=== PATIENT | female | born 1935 | race Caucasian/White ===

== ENCOUNTER 2016-11-03 17:49 | Inpatient (IN) | payer MEDICARE, MEDICAID ==
[~2016-11-03] VITALS: Ht 152.4 cm; Wt 74.7 kg
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
--- NOTE | ~2016-11-03 | PR ---
[place], [place] PROGRESS NOTE NAME: [facility]AYLER [facility]UNNINGHAM [id number] UNIT #: [id number] ROOM: 310 DOCTOR: ROSANA GROVE MD BIRTHDATE: [birth year] DOS: 11/07/2016 CHIEF COMPLAINT: "I think I need one more day, but I am feeling better." SUMMARY OF THE VISIT: The patient was interviewed in the dining area. She was wide awake, eating her breakfast. She stopped and engaged readily in conversation. For the first time since she has been here, she had a fairly goal directed normal conversation that included spontaneously thoughts and was fairly factual in its basis. The patient does report that she has been here about 3-4 days and feels that she came here because she is still grieving the loss of her son approximately 2 years ago. She recounted many of the things that led to her coming into the hospital and does state now that she is sleeping better, eating better, and feels that overall her mental status is clearing, but she is still fearful about returning home with her daughter that she has not yet 100% herself. This actually is some insight into her disease process that she had not shown previously. There was absolutely no talk of delusions, paranoia, or psychosis in anyway and she convincingly denied any medication side effects. MENTAL STATUS: She is alert and oriented with some time gaps, but overall she is fairly well intact. Mood does seem to be strongly trending towards euthymia. Affect is much more appropriate. She is spontaneously and is able to elaborate her thoughts and feelings quite well. There are no symptoms suggestive of hypomania or jack. There are no auditory or visual hallucinations noted. No paranoia is voiced. No delusions are voiced. Short, intermediate, and long-term memory for the most part are fully intact. PLAN: At this point in time, I will maintain her current psychotropic regimen that includes the antidepressant Remeron at 15 mg at bedtime, Risperdal 0.5 mg in the morning and 1 mg at night and Exelon patch 9.5 mg daily. We will engage in individual and billy milieu activity, finalize aftercare programming and discharge then when stable. ROSANA GROVE MD CM:PNTRANS 6 ROSANA GROVE MD 11/07/1637 interface
--- NOTE | ~2016-11-03 | CON ---
[place], [place] REPORT OF CONSULTATION NAME: TAYLER CUNNINGHAM UNIT #: [id number] ROOM: 310 DOCTOR: GIDEON FOY ED.D (CATHERINE) BIRTHDATE: [birth year] DOS: 11/06/2016 The patient is an 81-year-old female referred by Dr. Grove for competency evaluation. At the present time, this patient is on the [facility] at [facility]. She states she is a and has five children. 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 Her family physician is Dr. Gifford and Dr. Ramirez. Her medical history is pertinent for delirium and history of CVA, coronary artery disease. Her medications include Risperdal, Exelon patches and Remeron. She denies substance abuse issues. This patient was awake, alert and oriented in all three spheres. She was very lucid during my conversation. She appears to have been suffering from delirium, not otherwise specified. She apparently had a urinary tract infection and once that began to clear, her mental status improved significantly. Her daughter asked me about a power of staff attorney for healthcare, and in my opinion, this patient could certainly give a power of staff attorney to her daughter because I do believe she is competent at this time. DIAGNOSIS: Delirium, not otherwise specified. RECOMMENDATIONS: In my opinion, this patient is competent and her daughter can obtain a power of staff attorney from this patient if the patient so desires. Thank you very much for this consult. GIDEON FOY ED.D CM:CONSTR:REPORT OF CONSULTATION 1352 11/07/16 0205 interface ROSANA GROVE MD
--- NOTE | ~2016-11-03 | PR ---
[place], [place] PROGRESS NOTE NAME: TAYLER CUNNINGHAM UNIT #: [id number] ROOM: 310 DOCTOR: ROSANA GROVE MD BIRTHDATE: [birth year] DOS: 11/05/2016 CHIEF COMPLAINT: The patient was sleeping in a Rosenda chair in the quiet room. SUMMARY OF THE VISIT: The patient was attempted to be interviewed, but she was very somnolent. Nurses report that she had a fairly decent day until about 3-4 in the afternoon when she began to rapidly escalate and continued such escalation throughout the late afternoon, early evening and into wee hours of the morning. At that point in time, she became very delusional and psychotic. She reported that Jessica Smith was coming, the [place] were here. She was very labile and grossly psychotic. She was extremely confused as well. During this period of time, she required p.r.n. intervention, which at first did not work and finally did catch up with her and did calm her down. She right now is experiencing some of the somnolence from the p.r.n. still. MENTAL STATUS: My examination this morning is limited because of her somnolence. However, the nurses do report continued gross psychotic behavior. PLAN: I will discontinue the Seroquel in lieu of Risperdal 0.5 mg in the morning and 1 mg at bedtime to utilize an agent that is a little bit more potent and will break through the psychosis. Given the fact that the confusion worsened in the late afternoon and early evening, I will go ahead and start Exelon patch 4.6 mg daily. We will attempt to engage her in individual and billy milieu activity, explore possible placement options returning to the least restrictive one when stable. ROSANA GROVE MD CM:PNTRANS 48 ROSANA GROVE MD 11/05/162048 interface
--- NOTE | ~2016-11-03 | PR ---
[place], [place] PROGRESS NOTE NAME: TAYLER CUNNINGHAM UNIT #: [id number] ROOM: 310 DOCTOR: ROSANA GROVE MD BIRTHDATE: [birth year] DOS: 11/06/2016 CHIEF COMPLAINT: "Good morning." SUMMARY OF THE VISIT: The patient was interviewed as she rested quietly in the quiet room. She did awake enough to engage in brief conversation, very superficial and not spontaneously whatsoever. She was pleasant upon approach, however, and voiced no bizarre statements. This is in vicente contrast to the weekend when her comments oftentimes were quite bizarre and very delusional. Nurses report that she has been resting excessively, perhaps catching up from her three to four days if not sleeping whatsoever. She does seem to be tolerating the current medication regimen well and I see no tardive dyskinesia, extrapyramidal symptoms, sedation or somnolence. MENTAL STATUS: She is alert and oriented to person, place, not necessarily to time. Mood does seem to be fairly euthymic. Affect appropriate. There were no voiced delusions or paranoia this morning and there is no overt jack or hypomania. Memory has gaps. PLAN: I will go ahead and maintain the current dose of the Risperdal. I will increase Exelon patch from 4.6 to 9.5 mg daily, trying to maximize potential benefits in improving and maintaining ADLs, behavior and cognition. Continue to engage in individual and billy milieu activity, returning to the least restrictive environment when stable. ROSANA GROVE MD CM:PNTRANS 0807 [id number] ROSANA GROVE MD 11/06/16 0859 interface
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
--- NOTE | ~2016-11-03 | PN ---
[place], [place] PROGRESS NOTE NAME: TAYLER CUNNINGHAM UNIT #: [id number] ROOM: 310 DOCTOR: GIDEON FOY ED.D) BIRTHDATE: [birth year] DATE: 11/08/16 UPDATE I met with this patient and her daughter today regarding counseling following discharge. She is going to follow up with Dr. Marquis or Dr. Nieto at the [facility]. I suggested that the patient and her daughter both go to counseling together, but they decided they would rather go to separate therapists. The patient does struggle with interactions with her daughter and also with the loss of her son. Thank you very much for this consult. GIDEON FOY ED.D) CM:PNTRANS [id number] [id number] GIDEON FOY ED.D (BOB) 11/09/16 1728 ABBI [email or web address].LLR
--- NOTE | ~2016-11-03 | CON ---
[place], [place] REPORT OF CONSULTATION NAME: TAYLER CUNNINGHAM UNIT #: [id number] ROOM: 310 DOCTOR: QUITA HERRERA MD BIRTHDATE: [birth year] DOS: 11/05/2016 BEHAVIORAL HEALTH UNIT ATTENDING: Dr. Kaiser Salas. HISTORY OF PRESENT ILLNESS: The patient is an 81-year-old female with a past medical history of, 1. Diastolic type congestive heart failure. 2. Benign essential hypertension. 3. Centrilobular emphysema, COPD. 4. Coronary artery disease of the [place] vessels and history of UT and stent placement in the past. 5. History of GERD and esophagitis. 6. History of generalized anxiety disorder. The patient is presently admitted under care of Dr. Salas for major recurrent depression with psychotic features. The patient is unable to sleep for a few days and finally is resting now that she was given Geodon and some Ativan. The patient is resting comfortably and does wake up easily. She is asymptomatic. No chest pain, no shortness of breath, no GI or urinary symptoms. SYSTEMS REVIEW: LUNGS: No increasing shortness breath. No cough or wheezing. No sputum. GASTROINTESTINAL: No nausea, vomiting, diarrhea, or constipation. CARDIOVASCULAR SYSTEM: No chest pains or palpitations. FAMILY HISTORY: Noncontributory. PRESENT MEDICATIONS: Risperidone, rivastigmine, Fosamax, potassium, metoprolol, lisinopril, furosemide, Plavix, aspirin, Norvasc, omeprazole, simvastatin, Geodon, mirtazapine, lorazepam p.r.n. ALLERGIES: Known allergies to ALBUTEROL. FAMILY HISTORY: Noncontributory. PHYSICAL EXAMINATION: GENERAL: Alert, mostly oriented, in no acute distress. HEENT AND NECK: Extraocular movements are intact. Sclerae are anicteric. Oral mucosa is moist and clean. No obvious facial weakness. Neck is supple without any lymphadenopathy. No thyromegaly. No JVD. No carotid arterial bruits. LUNGS: Clear to auscultation. No wheezing. No rhonchi. CARDIOVASCULAR SYSTEM: Heart rate is regular in rate and rhythm. S1 and S2 normally audible. No significant murmur or any other abnormal cardiac sounds. ABDOMEN: Soft, nontender. No obvious organomegaly. Bowel sounds are present. No obvious herniation. EXTREMITIES: Without significant cyanosis or edema. Warm to touch. CENTRAL NERVOUS SYSTEM: Cranial nerves I-XII are intact. [place], [place] REPORT OF CONSULTATION NAME: TAYLER CUNNINGHAM UNIT #: [id number] ROOM: 310 DOCTOR: QUITA HERRERA MD BIRTHDATE: [birth year] LABORATORY DATA: Urine cultures were negative. Chest x-ray showed no acute abnormality. Ammonia level was normal. Lipid panel was normal. Thyroid functions were normal. IMPRESSION: 1. The patient with major depression with psychotic features. She was having hallucinations and is being followed closely by Dr. Kaiser Salas, the psychiatrist. The patient was not sleeping for a few days according to nursing staff, but finally she is sleeping after she was given Geodon and Ativan. The patient is asymptomatic and appears to be getting better. 2. Coronary artery disease of the [place] vessels without chest pains or any angina symptoms. 3. Chronic diastolic type congestive heart failure, compensated. No complaints of shortness of breath. No hypoxemia. No wheezing. 4. Centrilobular emphysema with subchronic dyspnea on exertion, presently asymptomatic. 5. Continue all home meds. Dr. Salas, thank you for asking me to see the patient, I will follow along with you. QUITA HERRERA MD CM:CONSTR:REPORT OF CONSULTATION 1513 11/06/16 0457 interface
[~2016-11-03 17:49] MED LIST: ALENDRONATE SOD70 M1 PO; ALEVE220 MG PO; AMLODIPINE BESYL5 MG PO; AMLODIPINE5 MG PO; ASPIRIN81 M1 PO; ATARAX,VISTARIL50 MG PO; CEFUROXIME AXE250 MG PO; CELEXA10 MG PO; CITALOPRAM10 MG PO; Clopidogrel75 MG PO; FOSAMAX70 MG PO; HYDR25T PO; HYDROCHLOROTHIA25 MG PO; K-TAB10 MEQ PO; LASIX20 MG PO; LEVOFLOXACIN500 MG PO; LISINOPRIL20 MG PO; LISINOPRIL5 MG PO; METOPROLOL TAR100 M1 PO; METOPROLOL100 MG PO; NEXIUM40 MG PO; NIRAVAM0.5 MG PO; NORCO 5-325 TA1 EACH PO; NORVASC5 MG PO; OMEPRAZOLE40 MG PO; PLAVIX75 MG PO; SIMVASTATIN20 MG PO; VANCOCIN250 M1 PO; VITAMIN D1000 IU PO; VITAMIN D31000 IU PO; VITAMIN D50000 I1 PO; XANAX0.5 MG PO; ZESTRIL20 MG PO; ZOCOR20 MG PO; ZOFRAN ODT4 MG SL
[2016-11-03 17:59] VITALS: BP 130/65
[2016-11-03 18:35] LABS: BASO % 0.5 % (0.0-1.0); EOS # 0.2 10*3/uL (0.0-0.4); EOS % 2.4 % (1.0-4.0); HEMATOCRIT 42.3 % (37.0-47.0); HEMOGLOBIN 14.1 g/dl (12.0-16.0); IG # 0.1 10*3/uL (0.0-0.1); LYMPH # 1.6 10*3/uL (1.3-4.4); LYMPH % 19.2 % (27.0-41.0); MEAN CELL VOLUME 90.4 fl (81.0-99.0); MEAN CORPUSCULAR HGB 30.1 pg (27.0-31.0); MEAN CORPUSCULAR HGB CONC 33.3 g/dl (33.0-37.0); MEAN PLATELET VOLUME 9.7 fl (9.6-12.3); MONO % 12.5 % (3.0-9.0); NEUT # 5.3 10*3/uL (2.3-7.9); NEUT % 64.7 % (47.0-73.0); PLATELET COUNT AUTOMATED 229 10*3/uL (130-400); RED BLOOD COUNT 4.68 10*6/uL (4.10-5.10); WHITE BLOOD COUNT 8.2 10*3/uL (4.8-10.8)
[2016-11-03 18:45] LABS: PROTHROMBIN TIME 10.7 SECONDS (9.0-12.4)
[2016-11-03 18:55] LABS: ALBUMIN 3.7 gm/dl (3.1-4.5); ALKALINE PHOSPHATASE 90 U/L (45-117); BILIRUBIN, TOTAL 0.4 mg/dl (0.2-1.0); BUN 22 mg/dl (7-24); CARBON DIOXIDE 29 mmol/L (21-32); CHLORIDE 100 mmol/L (98-107); CKMB 1.1 ng/ml (0.5-3.6); CPK 59 U/L (26-192); EST GLOM FILT AFRICAN AMERICAN 50 ml/min; GLUCOSE 121 mg/dL (65-99); LDH 145 U/L (84-246); MAGNESIUM 2.3 mg/dL (1.5-2.1); POTASSIUM 3.5 mmol/L (3.5-5.1); SGOT/AST 18 IU/L (3-35); SGPT/ALT 10 U/L (12-78); SODIUM 142 mmol/L (136-145); TOTAL PROTEIN 7.1 gm/dL (6.4-8.2)
[2016-11-03 19:04] LABS: TROPONIN I < 0.015 ng/ml (<0.045)
[2016-11-03 19:39] LABS: BILIRUBIN NEGATIVE (NEGATIVE); BLOOD NEGATIVE (NEGATIVE); CLARITY SL CLOUDY (CLEAR); COLOR YELLOW (YELLOW); GLUCOSE NEGATIVE (NEGATIVE); KETONE NEGATIVE (NEGATIVE); LEUKO ESTERASE TRACE (NEGATIVE); NITRITE NEGATIVE (NEGATIVE); PH 5.5 (5.0-9.0); PROTEIN NEGATIVE (NEGATIVE); SPECIFIC GRAVITY 1.015 (1.005-1.030); UROBILINOGEN 0.2 E.U./dl (0.2-1.0)
[2016-11-03 19:48] LABS: URINE AMPHETAMINES < 1000 (1000ng/ml); URINE BARBITURATES < 200 (200ng/ml); URINE COCAINE < 300 (300ng/ml)
[2016-11-03 19:49] LABS: BACTERIA 4+; HYALINE CAST TNTC
[2016-11-03 19:50] LABS: MUCOUS TRACE; URINE REFLEX COMMENT YES (NO)
[2016-11-03 22:00] VITALS: BP 123/73
[2016-11-03 22:29] VITALS: BP 123/73
[2016-11-04 06:50] LABS: THYROID STIM HORMONE (HS) 3.06 uIU/ml (0.358-4.75)
[2016-11-04 07:58] LABS: FOLIC ACID 17.3 ng/mL (>5.38); VITAMIN D, 25-HYDROXY 28.3 ng/mL (30-100)
[2016-11-04 08:20] VITALS: BP 115/67
[2016-11-04 19:24] VITALS: BP 137/77
[2016-11-05 07:41] VITALS: BP 114/60
[2016-11-05 20:00] VITALS: BP 110/60
[2016-11-06 07:22] VITALS: BP 117/53
[2016-11-06 20:00] VITALS: BP 108/52
[2016-11-06 22:15] VITALS: BP 118/64
[2016-11-07 07:55] VITALS: BP 124/82
[2016-11-07 20:41] VITALS: BP 112/46
[2016-11-08 07:51] VITALS: BP 117/47
[2016-11-08] MEDS ORDERED: RISPERIDONE1 MG PO (08:14)
[2016-11-08] MEDS ORDERED: RISPERIDONE0.5 MG PO (08:14)
[2016-11-08] MEDS ORDERED: RIVASTIGMINE1 EAC1 T (08:14)
[2016-11-08] MEDS ORDERED: MIRTAZAPINE15 M2 PO (08:14)
== END 2016-11-08 10:50 | disposition home health service (06) | DRG 885 ==
LOC: ED 17:49 → 3N 20:54
PROVIDERS: Nurse Practitioner Adult Health; Physician Assistant
DX: F33.3 Major depressive disorder, recurrent, severe with psychotic symptoms (principal); N39.0 Urinary tract infection, site not specified; I11.0 Hypertensive heart disease with heart failure; I50.32 Chronic diastolic (congestive) heart failure; I25.10 Atherosclerotic heart disease of native coronary artery without angina pectoris; R41.0 Disorientation, unspecified; J43.2 Centrilobular emphysema; K21.9 Gastro-esophageal reflux disease without esophagitis; F41.1 Generalized anxiety disorder; Z86.73 Personal history of transient ischemic attack (TIA), and cerebral infarction without residual deficits; Z95.5 Presence of coronary angioplasty implant and graft; I25.2 Old myocardial infarction

== ENCOUNTER → 2017-06-22 | Outpatient (CLI) | payer MEDICARE ==
[~2017-06-22] MED LIST changes: +MIRTAZAPINE15 M2 PO; +RISPERIDONE0.5 MG PO; +RISPERIDONE1 MG PO; +RIVASTIGMINE1 EAC1 T
== END | disposition home or self-care (01) ==
LOC: US 13:30
DX: M71.21 Synovial cyst of popliteal space [Baker], right knee (principal)

== ENCOUNTER 2018-01-08 14:11 | Inpatient (IN) | payer MEDICARE ==
[~2018-01-08] VITALS: Ht 157.5 cm; Wt 76.2 kg
--- NOTE | ~2018-01-08 | WRIGHTHP ---
[place], [place] PATIENT HISTORY AND PHYSICAL EXAM NAME: [id number] UNIT #: [id number] ROOM: 511 DOCTOR: ISH OLSON MD BIRTHDATE: [birth year] DOS: 01/08/2018 HISTORY OF PRESENT ILLNESS: The patient is very well known to us. She was brought into the emergency room by family members saying that she has been increasingly weak and tired and the family is unable to take care of her. The patient denies having any chest pains, palpitations or shortness of breath. Does not have any fever or chills, does not have any abdominal pain, nausea, emesis. Other than being constipated, she did not have any complaints. PAST MEDICAL HISTORY: Significant for, 1. Adult failure to thrive. 2. Severe hard of hearing. 3. Diastolic congestive heart failure. 4. Benign hypertension. 5. Coronary artery disease. 6. Generalized anxiety disorder. 7. Central lobar emphysema. 8. Last hospitalization in October [address] [facility] for encephalopathy. MEDICATIONS: Xanax 0.5 mg daily p.r.n., alendronate 70 once weekly, amlodipine 5 daily, aspirin 81 daily, vitamin D 1000 units daily, citalopram 10 daily, Plavix 75 daily, Lasix 40 daily, levothyroxine 50 mcg daily, lisinopril 20 daily, metoprolol 100 mg twice a day, Remeron 15 at bedtime, omeprazole 40 mg daily, potassium 10 daily, Risperdal 0.5 daily and then 1 mg at bedtime, Requip 1 mg daily, simvastatin 40 daily. SOCIAL HISTORY: Nonsmoker, does not use any alcohol. PHYSICAL EXAMINATION: GENERAL: She is awake and alert and oriented, hard of hearing. VITAL SIGNS: Graphic trend shows a pressure of 132/70, pulse of 86, respirations 14, afebrile. LUNGS: Clear. HEART: Regular. ABDOMEN: Obese. EXTREMITIES: Without any edema. NEUROLOGIC: No neuro deficits. ASSESSMENT AND PLAN: 1. The patient with adult failure to thrive, is here for placement purposes. Social service and PT, OT have been consulted. 2. Coronary artery disease of [place] coronaries stable without any new complaints. 3. Benign hypertension, controlled. [place], [place] PATIENT HISTORY AND PHYSICAL EXAM NAME: TAYLER CUNNINGHAM UNIT #: [id number] ROOM: 511 DOCTOR: ISH OLSON MD BIRTHDATE: [birth year] ISH OLSON MD CM:HISPHYS:PATIENT HISTORY AND PHYSICAL EXAMINATION 0841 1005 ISH OLSON MD 01/09/18 1004 interface
--- NOTE | ~2018-01-08 | DS ---
[place], [place] DISCHARGE SUMMARY NAME: TAYLER CUNNINGHAM UNIT #: [id number] ROOM: 511 DOCTOR: ISH OLSON MD BIRTHDATE: [birth year] DOS: 01/11/2018 The patient was admitted on 01/08/2018 and discharged on 01/11/2018. DIAGNOSES: 1. Adult failure to thrive. 2. Benign hypertension. 3. Coronary artery disease with history of stent placement. 4. Age-related cognitive decline. 5. Severe hard of hearing. 6. Diastolic congestive heart failure. HOSPITAL COURSE: The patient is 82 years old, very well known to us. The patient too weak and the family members unable to take care of her. They brought her to the Emergency Room and they requested placement. After admission, the patient was continued on home medications and social service and PT/OT consultation was obtained. Placement is being arranged to [facility]. Once precertification is obtained from the insurance, the patient should be able to go there today. DIET: Will be regular. DISCHARGE MEDICATIONS: Alendronate 70 once weekly on Sunday, amlodipine 5 daily, aspirin daily, Plavix 75 daily, lisinopril 20 daily, metoprolol 100 b.i.d., omeprazole 40 daily, simvastatin 20 daily, potassium 10 daily, Lasix 40 daily, Remeron 15 at bedtime, Risperdal 0.5 daily b.i.d., Xanax 0.5 daily p.r.n. for anxiety, citalopram 10 daily, levothyroxine 50 mcg daily, vitamin D 1000 units daily, Requip 1 mg at bedtime. The patient is 82 years old, will [facility]. [place], [place] DISCHARGE SUMMARY NAME: TAYLER CUNNINGHAM UNIT #: [id number] ROOM: 511 DOCTOR: ISH OLSON MD BIRTHDATE: [birth year] ISH OLSON MD CM:DISCHARG 0833 1612 ISH OLSON MD 01/25/18 0909 interface
--- NOTE | ~2018-01-08 | PR ---
[place], [place] PROGRESS NOTE NAME: TAYLER CUNNINGHAM UNIT #: [id number] ROOM: 511 DOCTOR: ISH OLSON MD BIRTHDATE: [birth year] DOS: 01/11/2018 SUBJECTIVE: The patient is doing fine without any complaints. She did walk with physical therapy this morning. OBJECTIVE: VITAL SIGNS: Graphic trend shows a pressure 126/55, pulse of 67, respirations 20, temperature 98. LUNGS: Clear. HEART: Regular. ABDOMEN: Obese, soft. EXTREMITIES: Without any edema. LABORATORY DATA: Blood culture shows no bacterial growth. ASSESSMENT AND PLAN: 1. Adult failure to thrive. The patient is on Physical Therapy, Occupations Therapy here. The family is unable to take care of her. intermediate facility placement will be obtained today. 2. Benign hypertension, controlled. ISH OLSON MD CM:PNTRANS 0830 2156 ISH OLSON MD 01/11/18 2154 interface
--- NOTE | ~2018-01-08 | PR ---
[place], [place] PROGRESS NOTE NAME: TAYLER CUNNINGHAM UNIT #: [id number] ROOM: 511 DOCTOR: ISH OLSON MD BIRTHDATE: [birth year] DOS: SUBJECTIVE: The patient is resting comfortably, does not appear to be in any distress. OBJECTIVE: VITAL SIGNS: Blood pressure is 121/66, pulse of 66, respirations 20, temperature 97.4. LUNGS: Clear. HEART: Regular. ABDOMEN: Obese. EXTREMITIES: No edema. LABORATORY DATA: No labs available. ASSESSMENT AND PLAN: 1. Adult failure to thrive for placement. The patient is complaining of 3-day stay for [facility] placement. 2. Benign hypertension, controlled. 3. Coronary artery disease of [place] coronaries stable without any complaints. ISH OLSON MD CM:CESILIA 54 ISH OLSON MD 01/10/181953 interface
[2018-01-08 14:12] VITALS: BP 114/56
[2018-01-08] MEDS ORDERED: ALPRAZOLAM0.5 M3 PO (14:19)
[2018-01-08] MEDS ORDERED: CITALOPRAM10 MG PO (14:20)
[2018-01-08] MEDS ORDERED: LEVOTHYROXINE50 MCG PO (14:21)
[2018-01-08] MEDS ORDERED: VITAMIN D400 UNI1 PO (14:23)
[2018-01-08 14:53] VITALS: BP 122/66
[2018-01-08 14:59] LABS: BILIRUBIN NEGATIVE (NEGATIVE); BLOOD NEGATIVE (NEGATIVE); CLARITY CLEAR (CLEAR); COLOR YELLOW (YELLOW); GLUCOSE NEGATIVE (NEGATIVE); KETONE NEGATIVE (NEGATIVE); LEUKO ESTERASE NEGATIVE (NEGATIVE); NITRITE NEGATIVE (NEGATIVE); UROBILINOGEN 0.2 E.U./dl (0.2-1.0)
[2018-01-08 15:04] LABS: BASO # 0.1 10*3/uL (0.0-0.1); BASO % 0.5 % (0.0-1.0); EOS # 0.3 10*3/uL (0.0-0.4); EOS % 3.2 % (1.0-4.0); HEMATOCRIT 41.9 % (37.0-47.0); HEMOGLOBIN 13.1 g/dl (12.0-16.0); LYMPH # 1.7 10*3/uL (1.3-4.4); LYMPH % 18.6 % (27.0-41.0); MEAN CELL VOLUME 93.7 fl (81.0-99.0); MEAN CORPUSCULAR HGB 29.3 pg (27.0-31.0); MEAN CORPUSCULAR HGB CONC 31.3 g/dl (33.0-37.0); MEAN PLATELET VOLUME 10.4 fl (9.6-12.3); MONO # 0.8 10*3/uL (0.1-1.0); MONO % 8.8 % (3.0-9.0); NEUT # 6.3 10*3/uL (2.3-7.9); NEUT % 68.2 % (47.0-73.0); PLATELET COUNT AUTOMATED 202 10*3/uL (130-400); RED BLOOD COUNT 4.47 10*6/uL (4.10-5.10); RED CELL DISTRI WIDTH 13.5 % (0-14.5); WHITE BLOOD COUNT 9.2 10*3/uL (4.8-10.8)
[2018-01-08 15:19] LABS: ALBUMIN 3.4 gm/dl (3.1-4.5); ALKALINE PHOSPHATASE 103 U/L (45-117); BUN 24 mg/dl (7-24); CHLORIDE 105 mmol/L (98-107); LIPASE 160 U/L (73-393); POTASSIUM 4.1 mmol/L (3.5-5.1); SGOT/AST 14 IU/L (3-35); SGPT/ALT 11 U/L (12-78); SODIUM 143 mmol/L (136-145); TOTAL PROTEIN 6.9 gm/dL (6.4-8.2)
[2018-01-08 15:22] LABS: TROPONIN I < 0.015 ng/ml (<0.045)
[2018-01-08 15:25] LABS: ACT PARTIAL THROMBO TIME 22.5 SECONDS (20.8-31.5)
[2018-01-08 15:43] VITALS: BP 115/61
[2018-01-08 15:45] LABS: BACTERIA TRACE; HYALINE CAST 0-3
[2018-01-08 16:14] VITALS: BP 109/68
[2018-01-08 17:00] VITALS: BP 137/73
[2018-01-08] MEDS ORDERED: ROPINIROLE HYDRO1 MG PO (17:14)
[2018-01-08 20:00] VITALS: BP 123/58
[2018-01-09] VITALS: BP 118/68
[2018-01-09 08:00] VITALS: BP 127/63
[2018-01-09 12:00] VITALS: BP 112/53
[2018-01-09 16:00] VITALS: BP 129/65
[2018-01-09 20:00] VITALS: BP 125/56
[2018-01-10] VITALS: BP 121/66
[2018-01-10 08:00] VITALS: BP 146/70
[2018-01-10 12:00] VITALS: BP 107/52
[2018-01-10 16:00] VITALS: BP 140/63
[2018-01-10 20:00] VITALS: BP 109/55
[2018-01-11] VITALS: BP 126/55
[2018-01-11 08:00] VITALS: BP 137/64; BP 137/69
[2018-01-11 12:00] VITALS: BP 120/57
== END 2018-01-11 14:44 | disposition other institution (70) | DRG 641 ==
LOC: ED 14:11 → EDHOLD 16:18 → 5E 16:18
PROVIDERS: Nurse Practitioner Family
DX: R62.7 Adult failure to thrive (principal); I11.0 Hypertensive heart disease with heart failure; I50.30 Unspecified diastolic (congestive) heart failure; I25.10 Atherosclerotic heart disease of native coronary artery without angina pectoris; H91.90 Unspecified hearing loss, unspecified ear; F41.1 Generalized anxiety disorder; E66.9 Obesity, unspecified; Z66 Do not resuscitate; M17.0 Bilateral primary osteoarthritis of knee; Z51.5 Encounter for palliative care; Z68.30 Body mass index [BMI] 30.0-30.9, adult; Z88.8 Allergy status to other drugs, medicaments and biological substances; Z79.899 Other long term (current) drug therapy; Z79.82 Long term (current) use of aspirin; Z98.61 Coronary angioplasty status; Z86.73 Personal history of transient ischemic attack (TIA), and cerebral infarction without residual deficits; Z87.01 Personal history of pneumonia (recurrent); Z83.3 Family history of diabetes mellitus; Z82.49 Family history of ischemic heart disease and other diseases of the circulatory system; Z82.3 Family history of stroke; Z83.6 Family history of other diseases of the respiratory system

== ENCOUNTER 2018-01-26 06:18 | Inpatient (IN) | payer MEDICARE ==
[~2018-01-26] VITALS: Ht 160 cm; Wt 80.7 kg
--- NOTE | ~2018-01-26 | PROC NOTE ---
[place], [place] PROCEDURE NOTE NAME: TAYLER CUNNINGHAM UNIT #: [id number] ROOM: 529 DOCTOR: GIORGI LOYOLA MD,ISMAEL BIRTHDATE: [birth year] DOS: 01/28/2018 PROCEDURE: Bronchoscopy. PREOPERATIVE DIAGNOSIS: The patient with area of atelectasis, infiltration, consolidation of right lower lobe. POSTOPERATIVE DIAGNOSIS: Acute pneumonia, suspected, ongoing in the right lower lobe. PROCEDURE DESCRIPTION: Informed consent obtained from the patient's daughter. The patient was brought to the OR and placed in supine position. Conscious sedation administered by the Anesthesia Department. After achieving proper sedation, airway introduced into the mouth. Bronchoscope advanced to the airway into laryngeal area. Epiglottis and vocal cords were seen. Bronchoscope advanced to the vocal cord and tracheal lumen. Tracheal lumen noted with small amount of secretions suctioned out. Vicki noted sharp. The left upper, lingular lower bronchi were all noted patent without secretions. Right upper, right middle lobe opening noted patent. The patient noted significant purulent secretion in the basilar subsegment of the right lower lobe, which was cleared off with normal saline wash. The adequate washing taken, sent for culture. Procedure well tolerated by the patient without any difficulty. Postoperative findings were discussed with the patient's daughter and Dr. Anum Gifford on the telephone as well. No change in treatment will be necessary. Culture will be monitored prior to making an adjustment with changes in antibiotics. Chest x-ray will be repeated later on as well for the patient possibly tomorrow or day after. Neutrophils of 98% consistent strongly for acute pneumonia. ISMAEL RAND MD CM:PROCNOTE:PROCEDURE NOTE [id number] ISMAEL LOYOLA MD
--- NOTE | ~2018-01-26 | PR ---
[place], [place] PROGRESS NOTE NAME: TAYLER CUNNINGHAM UNIT #: [id number] ROOM: 529 DOCTOR: ISH OLSON MD BIRTHDATE: [birth year] DOS: 01/30/2018 SUBJECTIVE: The patient is resting comfortably, did open eyes mechanic general operational test and did seem to understand what I said this morning. She does not have any complaints. OBJECTIVE: VITAL SIGNS: Blood pressure is 131/54, pulse of 69, respirations 20, temperature 97.8. LUNGS: Clear. HEART: Regular. ABDOMEN: Obese. EXTREMITIES: Without any edema. LABORATORY DATA: Routine culture shows normal loli. AFB smears are negative. ASSESSMENT AND PLAN: 1. The patient who presents with pneumonia, possible gram-negative, so far, the cultures are coming back negative. Clinically, the patient is improving. 2. Adult failure to thrive. The plan is to discharge her to [facility] today. Since cultures are negative, the vancomycin has been discontinued and the patient can be placed on p.o. medications upon discharge. ISH OLSON MD CM:PNTRANS [id number] ISH OLSON MD 01/30/18 0740 interface
--- NOTE | ~2018-01-26 | PR ---
[place], [place] PROGRESS NOTE NAME: TAYLER CUNNINGHAM UNIT #: [id number] ROOM: 529 DOCTOR: ISMAEL LORENZ MD BIRTHDATE: [birth year] DOS: 01/28/2018 SUBJECTIVE: The patient has been noted comfortable at this time, noted awake this morning on interactive noted with extreme severe hearing loss. The patient cannot speak. She has been noted comfortable at this time; otherwise, resting at the bed. She has been reported cough at times as per nursing staff. REVIEW OF SYSTEMS: Cannot be completed. The patient could not verbally communicate because of severe hearing loss. OBJECTIVE: VITAL SIGNS: Showed lowered grade fever of 99.2 degree Fahrenheit, respiratory rate 20, heart rate of 105-116 and blood pressure 147/74-136/52. HEENT: Examination shows head was atraumatic. Eyes nonicterus. NECK: Supple. CARDIOVASCULAR: S1, S2 audible. LUNGS: Noted decreased breaths in the lower portion of the lungs bilaterally. ABDOMEN: Soft. Moderate obesity. Bowel sounds present. EXTREMITIES: Noted without any acute edema. MUSCULOSKELETAL: Noted without any acute deformities. CENTRAL NERVOUS SYSTEM: Could not be examined clearly. However, there were no focal acute neurologic deficit noted. LABORATORY DATA: Noted blood gas yesterday pH of 7.36, pCO2 of 28, pO2 108 on nasal cannula. IMPRESSION: 1. Atelectasis of the right lower lobe. 2. Mucus impaction very likely with acute respiratory failure, possibility of acute pneumonia as well. Change in mental status, the patient seemed to be better today. The patient noted to be more awake. PLAN OF TREATMENT: Continue antibiotics, bronchodilators and oxygen supplementation. Proceed with the fibrobronchoscopy as planned. Other plan of therapy and care to be continued previously in progress without changes. No changes in the antibiotic will be necessary. Modification treatment, antibiotic could been done after review of the all cultures including current bronchoscopy, which was planned to be done today. Assessment and management were discussed with patient's daughter in detail personally. [place], [place] PROGRESS NOTE NAME: TAYLER CUNNINGHAM UNIT #: [id number] ROOM: 529 DOCTOR: ISMAEL LORENZ MD BIRTHDATE: [birth year] ISMAEL RAND MD CM:PNTRANS 113 ISMAEL LOYOLA MD 01/28/18 1131 interface
--- NOTE | ~2018-01-26 | CON ---
[place], [place] REPORT OF CONSULTATION NAME: TAYLER CUNNINGHAM UNIT #: [id number] ROOM: 529 DOCTOR: ISMAEL LORENZ MD BIRTHDATE: [birth year] DOS: 01/27/2018 PULMONARY CONSULTATION, EVALUATION, AND MANAGEMENT REASON FOR CONSULTATION: For assessment of change in mental status, current abnormal finding of the CT scan of the chest. HISTORY OF PRESENT ILLNESS: This is an 82-year-old white female, who has been staying at the [facility]. The patient was brought to the hospital as the patient developed acute change in mental status with increased lethargy and decreased responsiveness. She was seen by the primary care physician, Dr. Anum Gifford, last 01/21/2018 and was noted in her usual state of health, awake, and alert. She has been admitted to the hospital after assessment in the Emergency Room. She was still noted decreased responsiveness, does not respond to the vocal command, but noted with respond to the painful stimuli. CT scan of the head was also done. Chest x-ray was done. Later on, chest CT scan was also done, which showed evidence of mucus impaction with infiltration in the right lower lobe endobronchial tree. The patient has been currently noted without any distress; though, using oxygen supplementation by nasal cannula. She was not able to give me any history. All the history is contained and documented in review of the medical record, which was done by Dr. Anum Gifford note in my previous consultation of 2016. PAST MEDICAL HISTORY: Known with: 1. Chronic senile hearing loss. 2. The patient with history of essential hypertension. 3. Coronary artery disease. 4. Previous cerebrovascular accident. 5. Osteoporosis. 6. Hyperlipidemia. 7. Age-related cognitive decline. 8. History of postmenopausal osteoporosis. 9. History of congestive heart failure, diastolic dysfunction. 10. Restless leg syndrome. 11. History of hypothyroidism. 12. History of gastroesophageal reflux. 13. History of hypercholesterolemia. PAST SURGICAL HISTORY: Noted None significant. MEDICATIONS: Medications from the detention were noted use of Fosamax, Xanax, Norvasc, aspirin, vitamin D, citalopram, Plavix, levothyroxine, Lasix, lisinopril, metoprolol, Remeron, omeprazole, Risperdal, Requip, and Zocor. CURRENT MEDICATIONS: Administered noted use of Synthroid, DuoNeb, IV Zosyn, vancomycin, and other p.r.n. medications. DRUG ALLERGIES: THE PATIENT WAS NOTED ALLERGY TO ALBUTEROL. SOCIAL HISTORY: The patient is , has 6 children living at the [place], [place] REPORT OF CONSULTATION NAME: TAYLER CUNNINGHAM UNIT #: [id number] ROOM: 529 DOCTOR: ISMAEL LORENZ MD BIRTHDATE: [birth year] facility. The patient has been noted no past history of tobacco, alcohol, or illicit drug use. FAMILY HISTORY: Reported for essential hypertension. PHYSICAL EXAMINATION: GENERAL: This is an 82-year-old female, currently noted decreased response at the present time. Use of oxygen supplementation is 3 liters by nasal cannula. Height were recorded by the nursing staff as height of 5 feet 3 inches, weight of 178 pounds, and BMI of 31.5. VITAL SIGNS: T-max of 100 degrees Fahrenheit to normal temperature, respiratory rate of 18-20, heart rate of 104-127, and blood pressure of 131/61-108/53. Pulse oxygen saturation on 2 liters nasal cannula is 94% saturation. HEENT: On examination, apparently noted without any deformity. Head was atraumatic. Examination was limited. CARDIOVASCULAR: S1, S2 is audible. LUNGS: Essentially decreased breath sounds noted in the lungs without any wheeze or crackles at the present time. ABDOMEN: Noted soft, moderate obesity. Bowel sounds present. EXTREMITIES: Without any acute deformities, clubbing, cyanosis, or edema. MUSCULOSKELETAL SYMPTOMS: Without any acute deformities. VISIBLE SKIN: No lesions or rashes. CENTRAL NERVOUS SYSTEM: Decreased responsiveness, further assessment could not be performed. LABORATORY DATA: CBC that was done yesterday admission, WBC count is 12.6, hemoglobin is 11, and platelet count is 235,000. BMP of the patient that was done yesterday noted, glucose of 118, BUN of 24, and creatinine of 1.06. Urine drug screen yesterday was noted as negative. Ammonia level noted less than 10. CT chest that was done was noted with mucus plugging, area of atelectasis, and pneumonia involving the right lower lobe. Remaining lungs appeared to be clear of any acute abnormalities. Chest x-ray was suggestive of infiltration of the right lower lung. CT scan of the head that was done on 01/26/2018, no acute intracranial abnormalities. Arterial blood gas that I ordered noted pH of 7.36, pCO2 of 38, and pO2 of 108. This was done a 2 liters nasal cannula. IMPRESSION: 1. The patient has been currently admitted to the hospital with possibility of encephalopathy related to the current acute pneumonia with mucus impaction. 2. The patient with chronic senile hearing loss as well. 3. The patient with a history of hypothyroidism and other medical illness reported in the past history with chronic senile hearing loss as well with decreased communication. Possibility of aspiration cannot be completely excluded because of current unresponsiveness. PLAN OF MANAGEMENT: Continue the current antibiotics, which was ordered by Dr. Anum Gifford. The bronchoscopy was assessed and planned to be done on Sunday morning, 01/28/2018, and if the consent will be obtained ordered. Continue other comfort measures at this time. Usual care. Aspiration precautions. Avoid feeding orally until the patient noted fully awake and able to swallow the [place], [place] REPORT OF CONSULTATION NAME: TAYLER CUNNINGHAM UNIT #: [id number] ROOM: 529 DOCTOR: ISMAEL LORENZ MD BIRTHDATE: [birth year] food well. At this time, the patient's most of the medication has been given intravenously. Continue bronchodilators. Add Lovenox for DVT prophylaxis. Supportive care, other therapy, plan of management, and care plan. Assessment and management was discussed with Dr. Anum Gifford. Chest x-ray monitoring will be done in remission to assess the resolution of the current pneumonia/atelectasis and mucus impaction. Thanks for allowing me to participate in the care of this patient. ISMAEL RAND MD CM:CONSTR:REPORT OF CONSULTATION 1535 01/28/18 0202 interface
--- NOTE | ~2018-01-26 | PR ---
[place], [place] PROGRESS NOTE NAME: TAYLER CUNNINGHAM UNIT #: [id number] ROOM: 529 DOCTOR: ISMAEL LORENZ MD BIRTHDATE: [birth year] DOS: 01/29/2018 PULMONARY FOLLOWUP NOTE SUBJECTIVE: She has been noted fully awake and alert this morning. She has not been noted any acute new complaints of coughing. Chest congestion was noted decreased. She was noted extreme hard of hearing. The review of systems could not be performed. All the nursing staff had not reported any unusual symptoms in the last 24 hours. Bronchoscopy was done yesterday finding of acute pneumonia suspected in the right lower lobe consistent with the current finding noted on the CT scan of the chest with possible addition of atelectasis. OBJECTIVE: VITAL SIGNS: For the patient which were recorded showed the temperature noted 99.8 degree Fahrenheit to normal temperature, respiratory rate 16-24, heart rate 92-116, and the blood pressure 127/51-136/60. Pulse ox saturation on 2 liters 95% saturation. HEENT: Head was atraumatic, chronic severe, senile hearing loss, inability to verbally communicate. CARDIOVASCULAR: S1, S2 is audible. LUNGS: The patient was noted without any wheezing or crackles. ABDOMEN: Soft. Etvr-gg-vrueblne obesity, bowel sounds present. EXTREMITIES: Without acute edema. CENTRAL NERVOUS SYSTEM: No gross focal deficit. MUSCULOSKELETAL: No deformities. SKIN: Visible skin. No lesions or rashes. LABORATORY DATA: The specimen of right lower lobe noted with 98% neutrophils were noted. Gram stain of the bronchial washing, many white blood cells, few epithelial cells, no organisms seen. The BUN and creatinine today was noted as normal. Preliminary culture results of the bronchial washing noted as normal loli, final culture results were pending. IMPRESSION: 1. Acute severe pneumonia with addition of atelectasis right lower lobe suggested by the current via specimen of bronchial washing currently treated empirically with antibiotic as well as intravenous vancomycin. 2. Chronic hearing loss, which is noted seen in outpatient with inability to verbally communicate. 3. The patient with debility that remains persistent. PLAN OF MANAGEMENT: Adjust the dose of vancomycin at the trough level noted yesterday 1.6. The adjustment was done by the Pharmacy Services. Monitoring of the current respiratory status. Obtain a chest x-ray in the morning to reassess the progression of the pneumonia and additional area of atelectasis. Usual care, all other supportive therapy, plan of management and care plan. Other additional treatment changes will be suggested based on progression of the illness. Bronchodilator will be continued with oxygen supplementation in case of hypoxia. Pulse oxygen saturation is 92%. [place], [place] PROGRESS NOTE NAME: TAYLER CUNNINGHAM UNIT #: [id number] ROOM: 529 DOCTOR: ISMAEL LORENZ MD BIRTHDATE: [birth year] ISMAEL RAND MD CM:CESILIA [id number] ISMAEL LOYOLA MD 01/29/18 2330 interface
--- NOTE | ~2018-01-26 | PR ---
[place], [place] PROGRESS NOTE NAME: TAYLER CUNNINGHAM UNIT #: [id number] ROOM: 529 DOCTOR: ISMAEL LORENZ MD BIRTHDATE: [birth year] DOS: 01/30/2018 PULMONARY FOLLOWUP NOTE SUBJECTIVE: The patient was comfortable at this time, resting in the bed, noted abnormal because of severe hearing loss, but does not have signs of acute respiratory distress. She has been continued on intravenous antibiotics. Chest congestion, coughing seems to be decreased by nursing staff. OBJECTIVE: VITAL SIGNS: Normal temperature, respiratory rate 20, heart rate 70, blood pressure 145/71. Pulse ox saturation noted on 2.5 liters 94% saturation. HEENT: Examination shows head was atraumatic. Eyes: No icterus. NECK: Supple. CARDIOVASCULAR: S1, S2 audible. LUNGS: The patient was noted without any wheezing or crackles at the present time. ABDOMEN: Soft, nontender. EXTREMITIES: Without any acute edema. LABORATORY DATA: Chest x-ray that was done this morning was personally reviewed shows infiltration noted to increase in the right lower lobe with a small left pleural fluid was also noted. IMPRESSION: The patient currently noted rather culture of the bronchial washing was completed and noted as normal loli. IMPRESSION: 1 Possibility of lower lobe superimposed recurrent acute pneumonia likely cause of current worsening chest x-ray rather than acute pneumonia. 2. The patient with acute pneumonia as well, which has been treated with antibiotics. PLAN OF THERAPY: Diuretic therapy would be considered. Antibiotic to be completed. Other supportive therapy, plan of management. Follow up chest x-ray in about 3 days to be done. The patient was taking oral diuretics. [place], [place] PROGRESS NOTE NAME: TAYLER CUNNINGHAM UNIT #: [id number] ROOM: 529 DOCTOR: ISMAEL LORENZ MD BIRTHDATE: [birth year] ISMAEL RAND MD CM:PNTRANS [phone] ISMAEL LOYOLA MD 01/31/18 0140 interface
--- NOTE | ~2018-01-26 | WRIGHTHP ---
[place], [place] PATIENT HISTORY AND PHYSICAL EXAM NAME: TAYLER CUNNINGHAM [facility] #: [id number] UNIT #: [id number] ROOM: 529 DOCTOR: ISH OLSON MD BIRTHDATE: [birth year] DOS: 01/26/2018 HISTORY OF PRESENT ILLNESS: The patient is 82 years old. I had seen the patient on Sunday. She was pleasant, sitting up in a chair, has difficulty understanding the conversation because of her significant hard of hearing and lack of hearing aids, but she was not having any distress. She was discharged from [facility] . On Sunday morning, she presented to the Emergency Room with change in mental status. The patient was not responding any longer. There are no family members around. This morning, she does not have any complaints. She does open eyes slightly, but does not seem to recognize me and she does not seem to respond to any calls or questions. This could be because of her significant hard of hearing, but she does not appear to be focused either. PAST MEDICAL HISTORY: Significant for: 1. Recent hospitalization for adult failure to thrive. She was for placement to [facility]. She was discharged on 01/11/2018. She was in [place] until for therapy. 2. Benign hypertension. 3. History of cerebrovascular accident. 4. Coronary artery disease with history of stent placement. 5. Age-related cognitive decline. 6. Severe hard of hearing. 7. Diastolic CHF by history. 8. Postmenopausal osteoporosis. MEDICATIONS: She currently on were alendronate, Xanax, amlodipine, aspirin, vitamin D, citalopram, Plavix, Lasix, levothyroxine, lisinopril, metoprolol, Remeron, omeprazole, Risperdal, Requip and Zocor. SOCIAL HISTORY: Nonsmoker, does not use any alcohol. PHYSICAL EXAMINATION: GENERAL: The patient seems quite sleepy. Eyes will open energy conservation specialist or shaking her, but she does not respond to any commands or questions. VITAL SIGNS: Graphic trend shows a pressure of 131/61, pulse of 120, respirations 10, temperature 100.0. LUNGS: Diminished breath sounds. Scattered rhonchi heard bilaterally. HEART: Regular. ABDOMEN: Obese, soft. EXTREMITIES: Without any edema. ASSESSMENT AND PLAN: 1. The patient who presents with change in mental status, most likely has metabolic encephalopathy, possibly from hypoxemia from an underlying pneumonia versus a transient ischemic attack. CT of the head does not show any new findings, but chronic small vessel disease was noted and she has history of cerebrovascular accident a few years ago. 2. Pernicious anemia. B12 injections will be started. 3. Hypothyroidism. Thyroid functions have been normal as of few days ago. [place], [place] PATIENT HISTORY AND PHYSICAL EXAM NAME: TAYLER CUNNINGHAM UNIT #: [id number] ROOM: 529 DOCTOR: ISH OLSON MD BIRTHDATE: [birth year] 4. Morgagni type hernia. This is not causing any problems for the patient. She does indeed have pneumonia in the right lower lobe. This could be aspiration and since she was a assisted resident until , she is placed on vancomycin and Zosyn. Consultation with Dr. Lopez will be obtained for probable bronchoscopy because of the mucous plugging that is noticed. 5. Acute kidney injury, possibly from poor p.o. intake. Slow IV hydration will be given. 6. Adult failure to thrive. The patient should be able to go to a assisted once more stable. ISH OLSON MD CM:HISPHYS:PATIENT HISTORY AND PHYSICAL EXAMINATION [id number] ISH OLSON MD 02/08/18 0844 interface
--- NOTE | ~2018-01-26 | PR ---
[place], [place] PROGRESS NOTE NAME: TAYLER CUNNINGHAM UNIT #: [id number] ROOM: 529 DOCTOR: ISH OLSON MD BIRTHDATE: [birth year] DOS: 01/28/2018 SUBJECTIVE: The patient is looking much better this morning, she is much more awake and alert and still has difficulty communicating because of the hard of hearing, but she is no longer obtunded or lethargic. OBJECTIVE: VITAL SIGNS: Blood pressure is 136/52, pulse 116, respirations 17, temperature 98.3. LUNGS: Diminished breath sounds, clear. HEART: Regular. ABDOMEN: Obese. EXTREMITIES: Without any edema. ASSESSMENT AND PLAN: 1. Right lower lobe pneumonia with mucus plugging on the CT of the chest. The patient is scheduled for a bronchoscopy. Dr. Lopez has been consulted. Discussed with him in detail. 2. Metabolic encephalopathy, possibly multifactorial, which seems to be resolving. 3. Adult failure to thrive. The patient has been ordered PT/OT consultation and possible placement back to [facility]. ISH OLSON MD CM:PNCHI 8 [phone] ISH OLSON MD 01/28/181916 interface
--- NOTE | ~2018-01-26 | DS ---
[place], [place] DISCHARGE SUMMARY NAME: TAYLER CUNNINGHAM UNIT #: [id number] ROOM: 529 DOCTOR: ISH OLSON MD BIRTHDATE: [birth year] DOS: 01/30/2018 DIAGNOSES: 1. Metabolic encephalopathy, possibly from multifactorial. 2. Pneumonia, right lower lobe with atelectasis. 3. Mucus plugging, status post bronchoscopy with negative cultures. 4. Morganii type hernia. 5. Age-related cognitive decline. 6. Severe hard of hearing. 7. Benign hypertension. 8. Adult failure to thrive. 9. Diastolic dysfunction. 10. Postmenopausal osteoporosis. 11. History of cerebrovascular accident. DISCHARGE MEDICATIONS: Cipro 500 b.i.d. for 7 days, alendronate 70 once weekly on Sundays, aspirin 81 daily, Plavix 75 daily, metoprolol 100 daily, lisinopril 20 daily, omeprazole 40 daily, simvastatin 20 daily, Lasix 40 daily, Xanax 0.5 daily p.r.n., citalopram 10 daily, levothyroxine 50 mcg daily, vitamin D 1000 units daily. HOSPITAL COURSE: The patient is 82 years old. The patient comes in obtunded, lethargic from home. She was just discharged from the shelter one day prior to this admission. After evaluation in the ER, she was found to have pneumonia and was admitted. She was unresponsive for the next [address] of the head was done showed small vessel disease, but no acute changes were seen. A CT of the chest was done, which showed mucus plugging, atelectasis, and right lower lobe pneumonia and the patient was placed on multiple antibiotics including vancomycin because of recent shelter placement. Dr. Lopez was consulted because of mucus plugging. A bronchoscopy was performed. Bronch culture so far shows no bacterial growth. The patient is stable and is not having any complaints. Once we discontinued several of her antipsychotics, the patient became more awake and alert and oriented. She has severe hard of hearing that complicates communication. She is eating well and is not having any new complaints. The plan is to discharge her to the shelter for physical therapy. [place], [place] DISCHARGE SUMMARY NAME: TAYLER CUNNINGHAM UNIT #: [id number] ROOM: 529 DOCTOR: ISH OLSON MD BIRTHDATE: [birth year] ISH OLSON MD CM:VIOLA 075 ISH OLSON MD 01/30/18 0751 interface
--- NOTE | ~2018-01-26 | PR ---
[place], [place] PROGRESS NOTE NAME: TAYLER CUNNINGHAM UNIT #: [id number] ROOM: 529 DOCTOR: ISH OLSON MD BIRTHDATE: [birth year] DOS: 01/29/2018 SUBJECTIVE: The patient is doing fine without any complaints. This morning, she did wake up, she did seem to recognize me, does not appear to be in any distress. VITAL SIGNS: Blood pressure is 136/60, pulse of 90, respirations 16, temperature 97.9. LUNGS: Diminished breath sounds, clear. HEART: Regular. ABDOMEN: Obese. EXTREMITIES: Without any edema. ASSESSMENT AND PLAN: 1. Right lower lobe pneumonia, possible gram-negative on antibiotics. The patient is status post bronchoscopy. Bronch cultures are pending. 2. Adult failure to thrive. We will need placement. Social service has been working on it. 3. Metabolic encephalopathy seems to have resolved after several of her meds were held. The patient will have a PICC line placement and will try and arrange for transfer to [facility] when bed is available. ISH OLSON MD CM:PNTRANS [phone] ISH OLSON MD 01/29/18 461 interface
[~2018-01-26 06:18] MED LIST changes: +ALPRAZOLAM0.5 M3 PO; +LEVOTHYROXINE50 MCG PO; +ROPINIROLE HYDRO1 MG PO; +VITAMIN D400 UNI1 PO
[2018-01-26 06:27] VITALS: BP 132/62
[2018-01-26 06:57] LABS: HEMATOCRIT 34.9 % (37.0-47.0); HEMOGLOBIN 11.1 g/dl (12.0-16.0); MEAN CELL VOLUME 92.8 fl (81.0-99.0); MEAN CORPUSCULAR HGB 29.5 pg (27.0-31.0); MEAN CORPUSCULAR HGB CONC 31.8 g/dl (33.0-37.0); MEAN PLATELET VOLUME 9.7 fl (9.6-12.3); PLATELET COUNT AUTOMATED 235 10*3/uL (130-400); RED BLOOD COUNT 3.76 10*6/uL (4.10-5.10); WHITE BLOOD COUNT 12.6 10*3/uL (4.8-10.8)
[2018-01-26 07:10] LABS: BUN 24 mg/dl (7-24); CHLORIDE 111 mmol/L (98-107); CREATININE 1.06 mg/dL (0.55-1.02); POTASSIUM 3.9 mmol/L (3.5-5.1); SODIUM 145 mmol/L (136-145)
[2018-01-26 07:16] LABS: BASOPHILS 1 % (0-1); TOTAL CELLS COUNTED 100 #CELLS
[2018-01-26 07:17] LABS: ACETAMINOPHEN (TYLENOL) < 2.0 ug/ml (10-30); ETHYL ALCOHOL < 3.0 mg/dl (<3); PLATELET SUFFICIENCY NORMAL (NORMAL)
[2018-01-26 07:51] LABS: BILIRUBIN NEGATIVE (NEGATIVE); BLOOD NEGATIVE (NEGATIVE); CLARITY SL CLOUDY (CLEAR); COLOR YELLOW (YELLOW); GLUCOSE NEGATIVE (NEGATIVE); KETONE TRACE (NEGATIVE); LEUKO ESTERASE NEGATIVE (NEGATIVE); NITRITE NEGATIVE (NEGATIVE); PH 5.5 (5.0-9.0); UROBILINOGEN 0.2 E.U./dl (0.2-1.0)
[2018-01-26 07:57] LABS: BACTERIA TRACE; URIC ACID CRYSTALS 1+
[2018-01-26 08:00] LABS: URINE AMPHETAMINES < 1000 (1000ng/ml); URINE BARBITURATES < 200 (200ng/ml); URINE BENZODIAZEPINES < 200 (200ng/ml); URINE CANNABINOIDS (THC) < 50 (50ng/ml); URINE COCAINE < 300 (300ng/ml); URINE METHADONE < 300 (300ng/ml); URINE OPIATES < 300 (300ng/ml)
[2018-01-26 08:03] LABS: URINE PHENCYCLIDINE < 25 (25ng/ml)
[2018-01-26 08:45] VITALS: BP 127/93
[2018-01-26 11:00] VITALS: BP 130/73
[2018-01-26 16:00] VITALS: BP 126/58
[2018-01-26 20:00] VITALS: BP 144/59
[2018-01-27] VITALS: BP 131/61
[2018-01-27 08:00] VITALS: BP 134/84
[2018-01-27 09:42] LABS: ABG BASE EXCESS -3.1 mmol/L (-2.0-2.0); ABG HCO3 21.5 mmol/l (22-26); ABG O2 SATURATION 97.7 % (95-97); ARTERIAL BLOOD GAS PCO2 38.3 mmHg (35-45); ARTERIAL BLOOD GAS PH 7.366 (7.35-7.45)
[2018-01-27 12:00] VITALS: BP 108/53
[2018-01-27 16:00] VITALS: BP 112/52
[2018-01-27 20:00] VITALS: BP 129/55; BP 133/58
[2018-01-28] VITALS (7 sets, daily range): BP systolic 118–147; BP diastolic 51–74
[2018-01-28 11:53] LABS: BF LYMPHOCYTES 1 %; BF MACROPHAGES 1 %; BF NEUTROPHILS 98 %
[2018-01-29] VITALS: BP 136/60
[2018-01-29] MEDS ORDERED: MIRTAZAPINE15 M2 PO (01:30)
[2018-01-29] MEDS ORDERED: RISPERIDONE0.5 MG PO (01:33)
[2018-01-29] MEDS ORDERED: RISPERIDONE1 MG PO (01:34)
[2018-01-29] MEDS ORDERED: ROPINIROLE HYDRO1 MG PO (01:35)
[2018-01-29 06:39] LABS: BUN 10 mg/dl (7-24); CREATININE 0.72 mg/dL (0.55-1.02)
[2018-01-29 08:00] VITALS: BP 130/57
[2018-01-29 12:11] LABS: ACID FAST SPEC PROCESSING Concentration (.)
[2018-01-29 16:00] VITALS: BP 130/61
[2018-01-29 20:00] VITALS: BP 128/50
[2018-01-30] VITALS: BP 131/54
[2018-01-30] MEDS ORDERED: CIPRO500 MG PO (07:26)
[2018-01-30 08:00] VITALS: BP 145/71
[2018-01-30 10:17] LABS: BUN 8 mg/dl (7-24); CHLORIDE 112 mmol/L (98-107); CREATININE 0.77 mg/dL (0.55-1.02); POTASSIUM 3.2 mmol/L (3.5-5.1); SODIUM 146 mmol/L (136-145)
[2018-01-30 10:24] LABS: BASO % 0.3 % (0.0-1.0); EOS # 0.4 10*3/uL (0.0-0.4); EOS % 4.8 % (1.0-4.0); HEMATOCRIT 32.6 % (37.0-47.0); HEMOGLOBIN 10.3 g/dl (12.0-16.0); LYMPH # 1.1 10*3/uL (1.3-4.4); LYMPH % 14.1 % (27.0-41.0); MEAN CELL VOLUME 93.9 fl (81.0-99.0); MEAN CORPUSCULAR HGB 29.7 pg (27.0-31.0); MEAN CORPUSCULAR HGB CONC 31.6 g/dl (33.0-37.0); MONO # 0.8 10*3/uL (0.1-1.0); MONO % 9.5 % (3.0-9.0); NEUT # 5.5 10*3/uL (2.3-7.9); NEUT % 69.1 % (47.0-73.0); PLATELET COUNT AUTOMATED 206 10*3/uL (130-400); RED BLOOD COUNT 3.47 10*6/uL (4.10-5.10); RED CELL DISTRI WIDTH 14.3 % (0-14.5); WHITE BLOOD COUNT 7.9 10*3/uL (4.8-10.8)
[2018-03-13 11:02] LABS: ACID FAST CULTURE Negative (.)
== END 2018-01-30 11:22 | disposition other institution (70) | DRG 682 ==
LOC: ED 06:18 → EDHOLD 10:22 → 5E 10:22
PROVIDERS: Emergency Medicine; Internal Medicine; Internal Medicine Critical Care Medicine
PROC: 0B968ZZ Drainage of Right Lower Lobe Bronchus, Via Natural or Artificial Opening Endoscopic (ICD-10-PCS; principal; 2018-01-28)
PROC: 0B918ZZ Drainage of Trachea, Via Natural or Artificial Opening Endoscopic (ICD-10-PCS; principal; 2018-01-28)
DX: N17.9 Acute kidney failure, unspecified (principal); J18.1 Lobar pneumonia, unspecified organism; G93.41 Metabolic encephalopathy; I11.0 Hypertensive heart disease with heart failure; Q79.0 Congenital diaphragmatic hernia; I50.30 Unspecified diastolic (congestive) heart failure; D51.0 Vitamin B12 deficiency anemia due to intrinsic factor deficiency; R62.7 Adult failure to thrive; M81.0 Age-related osteoporosis without current pathological fracture; R41.81 Age-related cognitive decline; F41.9 Anxiety disorder, unspecified; I25.10 Atherosclerotic heart disease of native coronary artery without angina pectoris; M17.0 Bilateral primary osteoarthritis of knee; H60.502 Unspecified acute noninfective otitis externa, left ear; E66.9 Obesity, unspecified; E78.5 Hyperlipidemia, unspecified; G25.81 Restless legs syndrome; E03.9 Hypothyroidism, unspecified; Z66 Do not resuscitate; Z51.5 Encounter for palliative care; K21.9 Gastro-esophageal reflux disease without esophagitis; E78.00 Pure hypercholesterolemia, unspecified; Z86.73 Personal history of transient ischemic attack (TIA), and cerebral infarction without residual deficits; Z87.01 Personal history of pneumonia (recurrent); Z98.61 Coronary angioplasty status; Z79.899 Other long term (current) drug therapy; Z68.31 Body mass index [BMI] 31.0-31.9, adult

== ENCOUNTER → 2019-09-12 | Outpatient (CLI) | payer MEDICARE, MEDICAID ==
[~2019-09-12] MED LIST changes: +CIPRO500 MG PO
== END | disposition home or self-care (01) ==
LOC: CT 14:36
DX: R05 Cough (principal); I25.10 Atherosclerotic heart disease of native coronary artery without angina pectoris; N28.1 Cyst of kidney, acquired

== ENCOUNTER 2020-11-10 21:16 | Emergency (ER) | payer MEDICARE ==
[~2020-11-10] VITALS: Wt 73.5 kg
[2020-11-10 21:18] VITALS: BP 165/63
== END 2020-11-11 00:12 ==
LOC: ED 21:16
DX: S09.90XA Unspecified injury of head, initial encounter (principal); Z88.8 Allergy status to other drugs, medicaments and biological substances; Z79.899 Other long term (current) drug therapy; Z79.82 Long term (current) use of aspirin; Z79.2 Long term (current) use of antibiotics; Z98.890 Other specified postprocedural states; W19.XXXA Unspecified fall, initial encounter; Y93.89 Activity, other specified; Y92.89 Other specified places as the place of occurrence of the external cause; Y99.8 Other external cause status

== ENCOUNTER 2021-07-20 13:54 | Inpatient (IN) | payer MEDICARE ==
[~2021-07-20] VITALS: Ht 160 cm; Wt 62.2 kg
[2021-07-20 14:01] VITALS: BP 150/60
[2021-07-20 14:29] LABS: BASO # 0.1 10*3/uL (0.0-0.1); BASO % 0.8 % (0.0-1.0); EOS # 0.3 10*3/uL (0.0-0.4); EOS % 2.9 % (1.0-4.0); HEMATOCRIT 46.5 % (37.0-47.0); LYMPH # 2.7 10*3/uL (1.3-4.4); LYMPH % 23.5 % (27.0-41.0); MEAN CELL VOLUME 99.4 fl (81.0-99.0); MEAN CORPUSCULAR HGB 31.4 pg (27.0-31.0); MEAN CORPUSCULAR HGB CONC 31.6 g/dl (33.0-37.0); MEAN PLATELET VOLUME 9.4 fl (9.6-12.3); MONO # 1.3 10*3/uL (0.1-1.0); MONO % 11.4 % (3.0-9.0); NEUT # 6.9 10*3/uL (2.3-7.9); PLATELET COUNT AUTOMATED 203 10*3/uL (130-400); RED BLOOD COUNT 4.68 10*6/uL (4.10-5.10); RED CELL DISTRI WIDTH 15.4 % (0-14.5); WHITE BLOOD COUNT 11.5 10*3/uL (4.8-10.8)
[2021-07-20 14:46] LABS: ACT PARTIAL THROMBO TIME 24.5 SECONDS (20.0-32.1)
[2021-07-20 14:48] LABS: ALBUMIN 2.5 gm/dl (3.1-4.5); CREATININE 2.22 mg/dL (0.55-1.02); TOTAL PROTEIN 7.2 gm/dL (6.4-8.2)
[2021-07-20 15:03] LABS: POTASSIUM 6.8 mmol/L (3.5-5.1)
[2021-07-20 18:19] VITALS: BP 98/50
[2021-07-20 19:37] VITALS: BP 118/62
[2021-07-20 20:04] LABS: CREATININE 1.85 mg/dL (0.55-1.02)
[2021-07-20 20:06] LABS: POTASSIUM 6.3 mmol/L (3.5-5.1)
[2021-07-20] MEDS ORDERED: VITAMIN B-121000 MC2 PO (22:01)
[2021-07-20] MEDS ORDERED: LIPITOR10 MG PO (22:05)
[2021-07-20] MEDS ORDERED: PROTONIX20 MG PO (22:08)
[2021-07-20] MEDS ORDERED: FLUOXETINE HCL20 M2 PO (22:09)
[2021-07-20] MEDS ORDERED: POTASSIUM CHLO20 ME3 PO (22:14)
[2021-07-20 22:50] VITALS: BP 124/59
[2021-07-20] MEDS ORDERED: METOPROLOL SUC100 M1 PO (23:29)
[2021-07-20 23:30] LABS: BILIRUBIN Negative (Negative); BLOOD Negative (Negative); CLARITY Cloudy (Clear); COLOR Dark Yellow (Yellow); GLUCOSE Negative (Negative); KETONE Trace (Negative); LEUKO ESTERASE 1+ (Negative); NITRITE Negative (Negative)
[2021-07-20] MEDS ORDERED: LIDODERM1 EACH T (23:36)
[2021-07-20] MEDS ORDERED: DIVALPROEX SOD250 MG PO (23:39)
[2021-07-21 00:01] LABS: EPITHELIAL CELLS 41-50
[2021-07-21 00:02] LABS: BACTERIA TRACE
[2021-07-21 06:42] LABS: CREATININE 1.42 mg/dL (0.55-1.02)
[2021-07-21 07:02] LABS: POTASSIUM 5.2 mmol/L (3.5-5.1)
[2021-07-21 08:00] VITALS: BP 113/56
[2021-07-21 12:00] VITALS: BP 103/81
[2021-07-21 16:00] VITALS: BP 113/68
[2021-07-21 20:00] VITALS: BP 129/74
[2021-07-22] VITALS: BP 119/61
[2021-07-22 08:00] VITALS: BP 110/58
[2021-07-22 11:58] VITALS: BP 107/50
[2021-07-22 12:00] VITALS: BP 112/30
[2021-07-22 16:00] VITALS: BP 132/67
[2021-07-22 20:00] VITALS: BP 118/55
[2021-07-23] VITALS: BP 131/60
[2021-07-23 08:00] VITALS: BP 117/58
[2021-07-23 12:00] VITALS: BP 106/33
[2021-07-23 15:40] LABS: ALBUMIN 1.4 gm/dl (3.1-4.5); ALKALINE PHOSPHATASE 56 U/L (45-117); BUN 34 mg/dl (7-24); CHLORIDE 120 mmol/L (98-107); CREATININE 0.97 mg/dL (0.55-1.02); POTASSIUM 3.8 mmol/L (3.5-5.1); SGOT/AST 20 IU/L (3-35); SGPT/ALT 7 U/L (12-78); SODIUM 143 mmol/L (136-145); TOTAL PROTEIN 5.5 gm/dL (6.4-8.2)
[2021-07-23 15:58] LABS: BASO # 0.1 10*3/uL (0.0-0.1); BASO % 0.5 % (0.0-1.0); EOS # 0.1 10*3/uL (0.0-0.4); EOS % 0.6 % (1.0-4.0); LYMPH # 1.9 10*3/uL (1.3-4.4); LYMPH % 19.5 % (27.0-41.0); MEAN CELL VOLUME 96.8 fl (81.0-99.0); MEAN CORPUSCULAR HGB CONC 32.1 g/dl (33.0-37.0); MEAN PLATELET VOLUME 10.3 fl (9.6-12.3); MONO # 1.5 10*3/uL (0.1-1.0); MONO % 15.3 % (3.0-9.0); NEUT # 6.1 10*3/uL (2.3-7.9); NEUT % 62.2 % (47.0-73.0); PLATELET COUNT AUTOMATED 184 10*3/uL (130-400); RED BLOOD COUNT 4.03 10*6/uL (4.10-5.10); WHITE BLOOD COUNT 9.8 10*3/uL (4.8-10.8)
[2021-07-23 16:00] VITALS: BP 93/53
== END 2021-07-23 19:09 | DRG 682 ==
LOC: ED → EDHOLD 17:17 → 4E 17:17
PROVIDERS: Emergency Medicine; Internal Medicine Nephrology; ADMIT Internal Medicine; ATTEND Internal Medicine
DX: N17.0 Acute kidney failure with tubular necrosis (principal); U07.1 COVID-19; E43 Unspecified severe protein-calorie malnutrition; F33.1 Major depressive disorder, recurrent, moderate; N39.0 Urinary tract infection, site not specified; H60.11 Cellulitis of right external ear; R62.7 Adult failure to thrive; Z66 Do not resuscitate; I10 Essential (primary) hypertension; Z51.5 Encounter for palliative care; E03.9 Hypothyroidism, unspecified; E78.2 Mixed hyperlipidemia; K21.00 Gastro-esophageal reflux disease with esophagitis, without bleeding; M81.0 Age-related osteoporosis without current pathological fracture; Z88.8 Allergy status to other drugs, medicaments and biological substances; Z68.24 Body mass index [BMI] 24.0-24.9, adult